=== PATIENT | male | born 1995 | race African-American/Black ===

== ENCOUNTER 2020-09-20 19:38 | Emergency (ER) | payer SELFPAY ==
[~2020-09-20] VITALS: Ht 172.7 cm; Wt 97.7 kg
--- NOTE | 2020-09-20 20:28 | PHYS DOC ---
General Adult HPI: HPI: Patient is a 25-year-old male who presents with sore throat, fever for 5 days. Patient denies taking anything for fever or pain. Patient is also reporting dysuria and discharge from penis. Patient reports symptoms started 5 days ago. Patient reports recently having unprotected sex with a new partner. Patient has a history of asthma. (VINICIUS WYNN APRN) Review of Systems: Review of Systems: Constitutional: Reports fever and chills Eyes: Denies change in visual acuity HENT: Denies nasal congestion reports sore throat Respiratory: Denies cough or shortness of breath Cardiovascular: Denies chest pain or edema GI: Denies abdominal pain, nausea, vomiting, bloody stools or diarrhea : Reports dysuria and discharge Musculoskeletal: Denies back pain or joint pain Integument: Denies rash Neurologic: Denies headache, focal weakness or sensory changes Endocrine: Denies polyuria or polydipsia Lymphatic: Denies swollen glands Psychiatric: Denies depression or anxiety (VINICIUS WYNN APRN) Physical Exam: PE: Constitutional: Well developed, well nourished, no acute distress, non-toxic appearance. [] HENT: Normocephalic, atraumatic, bilateral external ears normal, oropharynx moist Eyes: PERRLA, EOMI, conjunctiva normal, no discharge. [] Neck: Normal range of motion, no tenderness, supple, no stridor. [] Cardiovascular:Heart rate regular rhythm, no murmur [] Lungs & Thorax: Bilateral breath sounds clear to auscultation [] Abdomen: Bowel sounds normal, soft, no tenderness, no masses, no pulsatile masses. [] Skin: Warm, dry, no erythema, no rash. [] Back: No tenderness, no CVA tenderness. [] Extremities: No tenderness, no cyanosis, no clubbing, ROM intact, no edema. [] Neurologic: Alert and oriented X 3, normal motor function, normal sensory fu nction, no focal deficits noted. [] Psychologic: Affect normal, judgement normal, mood normal. [] (VINICIUS WYNN APRN) EKG: EKG: [] (VINICIUS WYNN APRN) Radiology/Procedures: Radiology/Procedures: [] (VINICIUS WYNN APRN) Heart Score: C/O Chest Pain: No Risk Factors: Risk Factors: DM, Current or recent (<one month) smoker, HTN, HLP, family history of CAD, obesity. Risk Scores: Score 0 - 3: 2.5% MACE over next 6 weeks - Discharge Home Score 4 - 6: 20.3% MACE over next 6 weeks - Admit for Clinical Observation Score 7 - 10: 72.7% MACE over next 6 weeks - Early Invasive Strategies (VINICIUS WYNN APRN) Course & Med Decision Making: Course & Med Decision Making Pertinent Labs and Imaging studies reviewed. (See chart for details) [] Rapid strep ordered. UA ordered and GC chlamydia. Rapid strep is negative. Informed patient we will contact him if the culture comes back positive. Patient is treated prophylactically for STDs. Patient discharged home. Patient is hemodynamically stable. (VINICIUS WYNN APRN) Course & Med Decision Making Did not see or evaluate patient. Agree with CHUCKING MACHINE SET UP OPERATOR's work-up and disposition per note. (DANIEL MCGEE MD) Dragon Disclaimer: Dragon Disclaimer: This electronic medical record was generated, in whole or in part, using a voice recognition dictation system. (VINICIUS WYNN APRN) Departure Departure: Impression: Primary Impression: STD (sexually transmitted disease) Disposition: 01 DC HOME SELF CARE/HOMELESS Condition: STABLE Referrals: PCP,NO (PCP) Additional Instructions: EMERGENCY DEPARTMENT GENERAL DISCHARGE INSTRUCTIONS Thank you for coming to [facility] (ED) today and trusting us with you care. We trust that you had a positivie experience in our Emergency Department. If you wish to speak to the department management, you may call the director at [phone]. YOUR FOLLOW UP INSTRUCTIONS ARE FOLLOWS: 1. Do you have a private Doctor? If you do not have a private doctor, please ask for a resource list of physicians or clinics that may be able to assist you with follow up care. 2. The Emergency Physician has interpreted your x-rays. The X-Ray specialist will also review them. If there is a change in the findings, you will be notified in 48 hours when at all possible. 3. A lab test or culture has been done, your results will be reviewed and you will be notified if you need a change in treatment. ADDITIONAL INSTRUCTIONS AND INFORMATION: 1. Your care today has been supervised by a physician who is specially trained in emergency care. Many problems require more than one evaluation for a complete diagnosis and treatment. We recommend that you schedule your follow up appointment as recommended to ensure complete treatment of you illness or injury. If you are unable to obtain follow up care and continue to have a problem, or if your condition worsens, we recommend that you return to the ED. 2. We are not able to safely determine your condition over the phone nor are we able to give sound medical advice over the phone. For these safety reasons, if you call for medical advice we will ask you to come to the ED for further evaluation. 3. If you have any questions regarding these discharge instructions please call the ED at [phone]. SAFETY INFORMATION: In the interest of safety, wellness, and injury prevention; we encourage you to wear your sealbelt, if you smoke; quite smoking, and we encourage family to use a protective helmet for bicycling and other sporting events that present an increased risk for head injury. IF YOUR SYMPTOMS WORSEN OR NEW SYMPTOMS DEVELOP, OR YOU HAVE CONCERNS ABOUT YOUR CONDITION; OR IF YOUR CONDITION WORSENS WHILE YOU ARE WAITING FOR YOUR FOLLOW UP APPOINTMEN T; EITHER CONTACT YOUR PRIMARY CARE DOCTOR, THE PHYSICIAN WHOSE NAME AND NUMBER YOU WERE GIVEN, OR RETURN TO THE ED IMMEDIATELY. VINICIUS WYNN APRN Sep 20, 2020 20:28 DANIEL MCGEE MD Sep 21, 2020 01:08
[2020-09-20 20:56] LABS: BILIRUBIN,URINE SMALL (NEG); CLARITY,URINE CLOUDY; COLOR,URINE AMBER; GLUCOSE,URINE NEG (NEG)
[2020-09-20 20:57] LABS: BACTERIA,URINE FEW /HPF (0-FEW); NITRITE,URINE NEG (NEG); RBC,URINE RARE /HPF (0-2); SQUAMOUS EPITHELIAL CELL,UR OCC /LPF; WBC,URINE 20-40 /HPF (0-4)
[2020-09-20] MEDS ORDERED: cefTRIAXone IM 500 MG VIAL. IM ONE (21:30)
[2020-09-20] MEDS ORDERED: AZITHROMYCIN 250 MG TABLET. PO ONE (21:30)
[2020-09-20] MEDS ORDERED: metroNIDAZOLE 500 MG TABLET PO ONE (21:30)
[2020-09-20] MEDS ORDERED: ONDANSETRON ODT 4 MG TAB.RAPDIS PO ONE (21:45)
[2020-09-20 22:30] VITALS: BP 135/77
== END 2020-09-20 22:50 | disposition home or self-care (01) ==
LOC: ER 19:38
DX: A64 Unspecified sexually transmitted disease (principal)
CPT/HCPCS: 81001; 87070; 87086; 87491; 87591; 87880; 96372; 99284; J0696; Q0162; 36415

== ENCOUNTER 2020-11-22 18:48 | Emergency (ER) | payer SELFPAY ==
[~2020-11-22] VITALS: Ht 175.3 cm; Wt 100.0 kg
--- NOTE | 2020-11-22 19:07 | PHYS DOC ---
Past History Past Medical History: Asthma Past Surgical History: No Surgical History Alcohol Use: Heavy General Adult HPI: HPI: ".. I have as sore throat... Congestion, coughing, may be just allergies for maybe have got strep throat or something..." Patient is a 25 year old male who presents with above hx and complaints generalized upper respiratory complaints of congestion, drainage, pharyngitis, and a nonproductive cough. Patient denies any specific history of fever or chills. Patient denies any specific ill contacts. Patient works in [employer]. Patient does still smoke. Patient denies any travel. Patient denies any specific ill contacts. Patient states his STD symptoms have resolved from the visit on 09/20/2020. Patient denies any immunosuppression. Does have a history of some seasonal allergies. Patient has yet not following with primary care. Review of Systems: Review of Systems: Constitutional: Denies fever or chills Eyes: Denies change in visual acuity HENT: Complains of nasal congestion and sore throat Respiratory: Complains of a nonproductive cough Cardiovascular: Denies chest pain or edema GI: Denies abdominal pain, nausea, vomiting, bloody stools or diarrhea : Denies dysuria Musculoskeletal: Denies back pain or joint pain Integument: Denies rash Neurologic: Denies headache, focal weakness or sensory changes Endocrine: Denies polyuria or polydipsia Lymphatic: Denies swollen glands Psychiatric: Denies depression or anxiety Family History: Family History: Noncontributory Current Medications: Current Meds: See nursing for home meds Allergies: Allergies: Allergies Coded Allergies Type Severity Reaction Last Updated Verified No Known Drug Allergies 09/20/20 No Physical Exam: PE: Constitutional: Moderate acute distress, non-toxic appearance. [] HENT: Normocephalic, atraumatic, bilateral external ears normal, oropharynx chito st, active pharynx no oral exudates, nose swollen turbinates clear rhinorrhea Eyes: PERRLA, EOMI, conjunctiva normal, no discharge. [] Neck: Normal range of motion, no tenderness, supple, no stridor. [] Cardiovascular:Heart rate regular rhythm, no murmur [] Lungs & Thorax: Bilateral breath sounds equal apex with few scattered wheezes on auscultation [] Abdomen: Bowel sounds normal, soft, no tenderness, no masses, no pulsatile masses. [] Skin: Warm, dry, no erythema, no rash. [] Back: No tenderness, no CVA tenderness. [] Extremities: No tenderness, no cyanosis, no clubbing, ROM intact, no edema. [] Neurologic: Alert and oriented X 3, normal motor function, normal sensory function, no focal deficits noted. [] Psychologic: Affect anxious, judgement normal, mood normal. [] EKG: EKG: [] Radiology/Procedures: Radiology/Procedures: [] Heart Score: C/O Chest Pain: N/A Risk Factors: Risk Factors: DM, Current or recent (<one month) smoker, HTN, HLP, family history of CAD, obesity. Risk Scores: Score 0 - 3: 2.5% MACE over next 6 weeks - Discharge Home Score 4 - 6: 20.3% MACE over next 6 weeks - Admit for Clinical Observation Score 7 - 10: 72.7% MACE over next 6 weeks - Early Invasive Strategies Course & Med Decision Making: Course & Med Decision Making Pertinent Labs and Imaging studies reviewed. (See chart for details) Patient gargle with Listerine 4 times a day. Patient take Tylenol and ibuprofen for discomfort. Patient may use Benadryl 50 mg at 4 times a day for nasal congestion or drainage. Strongly encourage patient stop smoking. Follow-up primary care. Return with any concerns.] Impression: 1. Upper respiratory infection- 2. Seasonal allergies 3. Tobacco and marijuana use [] Dragon Disclaimer: Dragon Disclaimer: This electronic medical record was generated, in whole or in part, using a voice recognition dictation system. Departure Departure: Referrals: PCP,NO (PCP) SHEREEN MADERA MD November 22, 2020 19:07
[2020-11-22] MEDS: diphenhydrAMINE HCL 25 MG CAPSULE PO ONE (19:41)
[2020-11-22] MEDS: predniSONE 10 MG TABLET PO ONE (19:42)
[2020-11-22 21:00] VITALS: BP 120/65
== END 2020-11-22 21:17 | disposition home or self-care (01) ==
LOC: ER 18:48
DX: J06.9 Acute upper respiratory infection, unspecified (principal); F12.10 Cannabis abuse, uncomplicated; F17.210 Nicotine dependence, cigarettes, uncomplicated; J45.909 Unspecified asthma, uncomplicated
CPT/HCPCS: 87070; 87880; 99283; J7512; Q0163